=== PATIENT | female | born 1965 | race Caucasian/White ===

== ENCOUNTER 2019-06-25 10:47 | Outpatient (CLI) | payer BC ==
--- NOTE | 2019-06-25 13:12 | ULT ---
ABDOMINAL ULTRASOUND: Date: 06/25/2019 PROVIDED CLINICAL HISTORY: Abdominal pain. FINDINGS: The visualized abdominal aorta, IVC, and pancreas appear normal. The liver demonstrates no mass or intrahepatic biliary ductal dilatation. The common duct is nondilat ed. The gallbladder demonstrates no stones, wall thickening, or pericholecystic fluid. The kidneys demonstrate no evidence for hydronephrosis or mass. The spleen is nonenlarged and demonst rates no focal abnormality. Limited sonographic interrogation of the anterior abdominal well in the region of patient pain demons trates no sonographically apparent abnormality. IMPRESSION: Unremarkable abdominal ultrasound. POS: [facility]
== END 2019-06-25 10:48 | disposition home or self-care (01) ==
LOC: BICULT 10:47
PROVIDERS: ATTEND Family Medicine
DX: K42.9 Umbilical hernia without obstruction or gangrene (principal)
CPT/HCPCS: 93975

== ENCOUNTER 2021-03-25 14:03 | Outpatient (CLI) | payer BC | END 2021-03-25 14:04 | disposition home or self-care (01) | LOC: BICCT 14:03 | PROVIDERS: ATTEND Family Medicine | DX: R10.9 Unspecified abdominal pain (principal) | CPT/HCPCS: 74150 ==